=== PATIENT | female | born 1955 | race Caucasian/White ===

== ENCOUNTER 2025-01-06 12:36 | Emergency (ER) | payer MEDICARE ==
[~2025-01-06] VITALS: Ht 154.9 cm; Wt 99.1 kg
[2025-01-06 12:45] VITALS: BP 125/65; PULSE 105; RESP 18; TEMP 98.1; O2SAT 95
[2025-01-06] MEDS ORDERED: LISI-894 PO (12:50)
[2025-01-06] MEDS: KETOROLAC TROMETHAMINE 60 MG/2 ML VIAL IM ONE (14:45)
[2025-01-06] MEDS: LIDOCAINE 5% TRANSDERMAL PATCH TD ONE (14:46)
[2025-01-06] MEDS: OxyCODONE HCL/ACETAMINOPHEN 5-325 MG TABLET PO ONE (14:46)
[2025-01-06] MEDS ORDERED: METH-659 PO (15:22)
[2025-01-06] MEDS ORDERED: IBUP-1492 PO (15:22)
[2025-01-06] MEDS ORDERED: LIDO-57 TP (15:23)
== END 2025-01-06 15:54 | disposition home or self-care (01) ==
LOC: EMS 12:45
DX: M54.32 Sciatica, left side (principal); I10 Essential (primary) hypertension; M19.90 Unspecified osteoarthritis, unspecified site; Z98.890 Other specified postprocedural states; Z79.899 Other long term (current) drug therapy
CPT/HCPCS: 99284; 96372; J1885